=== PATIENT | male | born 1950 | race Hispanic/Latino ===

== ENCOUNTER 2020-07-03 09:57 | Inpatient (IN) | payer MEDICARE, SELFPAY ==
[2020-07-03] MEDS ORDERED: Dexamethasone 10 MG/ML VIAL ONE (10:48)
[2020-07-03] MEDS ORDERED: Albuterol Sulfate 1.25 MG/3 ML NEB ONE (10:49)
[2020-07-03 11:51] LABS: #Basophils 0.1 thou/uL (0.0-0.2); #Lymphocytes 1.5 thou/uL (1.20-3.40); #Monocytes 1.1 thou/uL (0.11-0.59); #Neutrophils 8.7 thou/uL (1.40-6.50); %Basophils 0.6 % (0.0-1.0); %Lymphocytes 12.8 % (21.0-51.0); %Monocytes 9.5 % (0.0-10.0); Hemoglobin 13.2 g/dL (14.0-18.0); Mean Corpuscular HGB CONC 32.8 g/dL (32.0-36.0); Mean Corpuscular Hemoglobin 28.3 pg (27.0-31.0); Mean Corpuscular Volume 86.4 fL (78.0-98.0); Mean Platelet Volume 8.6 fL (7.4-10.4); Platelet Count 353 thou/uL (130-400); RBC Distribution Width 12.2 % (11.5-14.5); Red Blood Cell (RBC) Count 4.65 mill/uL (4.70-6.10); White Blood Cell (WBC) Count 11.3 thou/uL (4.8-10.8)
[2020-07-03 12:06] LABS: ALT (SGPT) 13 U/L (8-55); AST (SGOT) 18 U/L (5-34); Alkaline Phosphatase 57 U/L (40-110); Anion Gap 19 mmol/L (10-20); BUN (Urea Nitrogen) 15 mg/dL (8.4-25.7); Bilirubin, Total 0.5 mg/dL (0.2-1.2); Calc. Creatinine Clearance 0 mL/min (70-130); Calcium 8.3 mg/dL (7.8-10.44); Carbon Dioxide 18 mmol/L (23-31); Chloride 105 mmol/L (98-107); Globulin 3.4 g/dL (2.4-3.5); Glucose 274 mg/dL (80-115); Potassium 3.4 mmol/L (3.5-5.1); Protein, Total 6.4 g/dL (5.8-8.1); Sodium 139 mmol/L (136-145)
[2020-07-03] MEDS ORDERED: Triple Antibiotic Oint 1 GM Packet ONE (16:19)
[2020-07-03] MEDS ORDERED: Bacitracin 1 PK ONE (16:19)
[2020-07-03] MEDS ORDERED: Albuterol Sulfate 2.5 mg/3 ml Neb NEB PRN (19:08)
[2020-07-03] MEDS ORDERED: Ondansetron PF 4 MG/2 ML Vial IVP PRN (19:15)
[2020-07-03] MEDS ORDERED: Ondansetron ODT 4 MG TAB SL PRN (19:15)
[2020-07-03] MEDS: Sodium Chloride 0.9% 1,000 ML IV SCH (19:15)
[2020-07-03 19:35] VITALS: BMI 27.1
[2020-07-03] MEDS ORDERED: Loperamide HCl 2 MG CAP PO PRN ×2 (20:32)
[2020-07-03] MEDS ORDERED: Senokot S 8.6-50 MG TAB PO PRN (20:32)
[2020-07-03] MEDS ORDERED: Dextrose 5% in Water 1,000 ML IV PRN (20:37)
[2020-07-03] MEDS ORDERED: Dextrose 50% Abboject 50 ML SYRINGE SLOW IVP PRN (20:37)
[2020-07-03] MEDS ORDERED: Enoxaparin Sodium 40 MG/0.4 ML SYRINGE SC SCH (21:00)
[2020-07-03] MEDS: HumuLIN 70/30 (300 UNITS/3 ML VIAL) SC SCH (21:08)
[2020-07-03] MEDS: Gabapentin 300 MG CAP PO SCH (21:09)
[2020-07-03] MEDS: Atorvastatin Calcium 10 MG TAB PO SCH (21:09)
[2020-07-03] MEDS: HumaLOG 300 UNITS/3 ML VIAL SC PRN (21:09)
[2020-07-03] MEDS: Guaifenesin DM 100-10/5 ML UDCUP PO PRN (22:08)
[2020-07-04] MEDS: Sodium Chloride 0.9% 1,000 ML IV SCH ×3 (01:06→17:17)
[2020-07-04 04:41] LABS: #Lymphocytes 0.6 thou/uL (1.20-3.40); #Monocytes 0.5 thou/uL (0.11-0.59); #Neutrophils 3.6 thou/uL (1.40-6.50); %Basophils 0.6 % (0.0-1.0); %Eosinophils 0.1 % (0.0-10.0); %Lymphocytes 13.1 % (21.0-51.0); %Neutrophils 76.2 % (42.0-75.0); Hemoglobin 12.6 g/dL (14.0-18.0); Mean Corpuscular HGB CONC 32.2 g/dL (32.0-36.0); Mean Corpuscular Hemoglobin 27.8 pg (27.0-31.0); Mean Corpuscular Volume 86.4 fL (78.0-98.0); Mean Platelet Volume 8.5 fL (7.4-10.4); Platelet Count 364 thou/uL (130-400); RBC Distribution Width 12.3 % (11.5-14.5); Red Blood Cell (RBC) Count 4.54 mill/uL (4.70-6.10); White Blood Cell (WBC) Count 4.7 thou/uL (4.8-10.8)
[2020-07-04 05:18] LABS: ALT (SGPT) 13 U/L (8-55); AST (SGOT) 18 U/L (5-34); Albumin 2.9 g/dL (3.4-4.8); Alkaline Phosphatase 66 U/L (40-110); Anion Gap 17 mmol/L (10-20); BUN (Urea Nitrogen) 13 mg/dL (8.4-25.7); Bilirubin, Total 0.3 mg/dL (0.2-1.2); Calc. Creatinine Clearance 121 mL/min (70-130); Calcium 8.6 mg/dL (7.8-10.44); Carbon Dioxide 18 mmol/L (23-31); Chloride 108 mmol/L (98-107); Globulin 3.4 g/dL (2.4-3.5); Glucose 311 mg/dL (80-115); Protein, Total 6.3 g/dL (5.8-8.1); Sodium 139 mmol/L (136-145)
[2020-07-04] MEDS ORDERED: Albuterol 200 PUFF (6.7GM INHALER) INH PRN (07:45)
[2020-07-04] MEDS ORDERED: Dexamethasone 4 MG TAB ONE ×3 (08:10)
[2020-07-04] MEDS ORDERED: Dexamethasone 10 MG/ML VIAL ONE (08:20)
[2020-07-04] MEDS ORDERED: FLU VACC QS2020-21(65YR UP)/PF 240 MCG/0.7 ML SYRINGE IM ONE (09:00)
[2020-07-04] MEDS ORDERED: Dexamethasone 4 MG TAB PO SCH (09:00)
[2020-07-04] MEDS: DEXAMETHASONE IVPB SCH (10:05)
[2020-07-04] MEDS: SODIUM CHLORIDE 0.9% IVPB SCH (10:05)
[2020-07-04] MEDS: metFORMIN 500 MG TAB PO SCH ×2 (10:06→17:15)
[2020-07-04] MEDS: Gabapentin 300 MG CAP PO SCH ×3 (10:06→21:00)
[2020-07-04] MEDS: HumuLIN 70/30 (300 UNITS/3 ML VIAL) SC SCH ×2 (10:07→21:00)
[2020-07-04] MEDS: Escitalopram Oxalate 20 mg Tablet PO SCH (10:07)
[2020-07-04] MEDS: HumaLOG 300 UNITS/3 ML VIAL SC PRN ×4 (10:09→21:00)
[2020-07-04] MEDS: Albuterol 200 PUFF (6.7GM INHALER) INH SCH ×2 (13:25→18:17)
[2020-07-04] MEDS ORDERED: Iopamidol 370 76% 100 ML VIAL ONE (16:43)
[2020-07-04] MEDS: Acetaminophen 325 MG TAB PO PRN (17:15)
[2020-07-04] MEDS: Enoxaparin Sodium 40 MG/0.4 ML SYRINGE SC SCH (21:00)
[2020-07-04] MEDS: Atorvastatin Calcium 10 MG TAB PO SCH (21:00)
[2020-07-05] MEDS: Albuterol 200 PUFF (6.7GM INHALER) INH SCH ×4 (01:14→18:02)
[2020-07-05] MEDS: Sodium Chloride 0.9% 1,000 ML IV SCH (04:58)
[2020-07-05] MEDS ORDERED: Dexamethasone 4 mg/ml Vial ONE (07:58)
[2020-07-05] MEDS: metFORMIN 500 MG TAB PO SCH ×2 (09:26→16:01)
[2020-07-05] MEDS: SODIUM CHLORIDE 0.9% IVPB SCH (09:26)
[2020-07-05] MEDS: DEXAMETHASONE IVPB SCH (09:26)
[2020-07-05] MEDS: Gabapentin 300 MG CAP PO SCH ×3 (09:27→21:31)
[2020-07-05] MEDS: Escitalopram Oxalate 20 mg Tablet PO SCH (09:28)
[2020-07-05] MEDS: HumaLOG 300 UNITS/3 ML VIAL SC PRN ×3 (09:28→21:34)
[2020-07-05] MEDS: HumuLIN 70/30 (300 UNITS/3 ML VIAL) SC SCH ×2 (09:29→21:33)
[2020-07-05] MEDS: Acetaminophen 325 MG TAB PO PRN (12:45)
[2020-07-05] MEDS: Atorvastatin Calcium 10 MG TAB PO SCH (21:31)
[2020-07-05] MEDS: Guaifenesin DM 100-10/5 ML UDCUP PO PRN (21:32)
[2020-07-06] MEDS: Enoxaparin Sodium 40 MG/0.4 ML SYRINGE SC SCH ×2 (01:17→22:24)
[2020-07-06] MEDS: Acetaminophen 325 MG TAB PO PRN ×2 (01:18→22:28)
[2020-07-06] MEDS: Albuterol 200 PUFF (6.7GM INHALER) INH SCH ×5 (01:20→22:28)
[2020-07-06 05:05] LABS: #Basophils 0.1 thou/uL (0.0-0.2); #Lymphocytes 1.2 thou/uL (1.20-3.40); #Monocytes 0.9 thou/uL (0.11-0.59); %Basophils 1.2 % (0.0-1.0); %Lymphocytes 13.1 % (21.0-51.0); %Monocytes 9.4 % (0.0-10.0); %Neutrophils 76.3 % (42.0-75.0); Hemoglobin 12.6 g/dL (14.0-18.0); Mean Corpuscular HGB CONC 32.4 g/dL (32.0-36.0); Mean Corpuscular Hemoglobin 27.9 pg (27.0-31.0); Mean Corpuscular Volume 86.2 fL (78.0-98.0); Platelet Count 400 thou/uL (130-400); RBC Distribution Width 12.3 % (11.5-14.5); Red Blood Cell (RBC) Count 4.51 mill/uL (4.70-6.10); White Blood Cell (WBC) Count 9.2 thou/uL (4.8-10.8)
[2020-07-06 05:20] LABS: ALT (SGPT) 12 U/L (8-55); AST (SGOT) 14 U/L (5-34); Albumin 2.7 g/dL (3.4-4.8); Alkaline Phosphatase 51 U/L (40-110); Anion Gap 13 mmol/L (10-20); BUN (Urea Nitrogen) 11 mg/dL (8.4-25.7); Bilirubin, Total 0.3 mg/dL (0.2-1.2); Calc. Creatinine Clearance 152 mL/min (70-130); Calcium 8.1 mg/dL (7.8-10.44); Carbon Dioxide 23 mmol/L (23-31); Chloride 111 mmol/L (98-107); Globulin 2.7 g/dL (2.4-3.5); Glucose 94 mg/dL (80-115); Protein, Total 5.4 g/dL (5.8-8.1); Sodium 144 mmol/L (136-145)
[2020-07-06] MEDS ORDERED: Dexamethasone 4 mg/ml Vial ONE (07:52)
[2020-07-06] MEDS: metFORMIN 500 MG TAB PO SCH ×2 (09:14→16:16)
[2020-07-06] MEDS: Gabapentin 300 MG CAP PO SCH ×3 (09:14→22:25)
[2020-07-06] MEDS: DEXAMETHASONE IVPB SCH (09:15)
[2020-07-06] MEDS: SODIUM CHLORIDE 0.9% IVPB SCH (09:15)
[2020-07-06] MEDS: Escitalopram Oxalate 20 mg Tablet PO SCH (09:15)
[2020-07-06] MEDS: HumuLIN 70/30 (300 UNITS/3 ML VIAL) SC SCH ×2 (09:16→22:26)
[2020-07-06] MEDS: HumaLOG 300 UNITS/3 ML VIAL SC PRN (18:08)
[2020-07-06] MEDS: Guaifenesin DM 100-10/5 ML UDCUP PO PRN (22:25)
[2020-07-06] MEDS: Atorvastatin Calcium 10 MG TAB PO SCH (22:25)
[2020-07-07] MEDS: Albuterol 200 PUFF (6.7GM INHALER) INH SCH ×4 (06:49→20:51)
[2020-07-07] MEDS: Dexamethasone 4 mg/ml Vial SLOW IVP SCH (09:02)
[2020-07-07] MEDS: HumuLIN 70/30 (300 UNITS/3 ML VIAL) SC SCH ×2 (09:03→20:49)
[2020-07-07] MEDS: Gabapentin 300 MG CAP PO SCH ×3 (09:03→20:50)
[2020-07-07] MEDS: Escitalopram Oxalate 20 mg Tablet PO SCH (09:04)
[2020-07-07] MEDS: metFORMIN 500 MG TAB PO SCH ×2 (09:04→16:30)
[2020-07-07] MEDS: HumaLOG 300 UNITS/3 ML VIAL SC PRN (18:28)
[2020-07-07] MEDS: Enoxaparin Sodium 40 MG/0.4 ML SYRINGE SC SCH (20:51)
[2020-07-07] MEDS: Atorvastatin Calcium 10 MG TAB PO SCH (20:51)
[2020-07-08] MEDS: Albuterol 200 PUFF (6.7GM INHALER) INH SCH ×4 (02:00→20:00)
[2020-07-08] MEDS: Escitalopram Oxalate 20 mg Tablet PO SCH (07:54)
[2020-07-08] MEDS: metFORMIN 500 MG TAB PO SCH ×2 (07:54→15:50)
[2020-07-08] MEDS: HumuLIN 70/30 (300 UNITS/3 ML VIAL) SC SCH ×3 (07:55→20:37)
[2020-07-08] MEDS: Gabapentin 300 MG CAP PO SCH ×3 (07:55→20:35)
[2020-07-08] MEDS: Dexamethasone 4 mg/ml Vial SLOW IVP SCH (08:05)
[2020-07-08 11:21] LABS: #Basophils 0.1 thou/uL (0.0-0.2); #Lymphocytes 1.1 thou/uL (1.20-3.40); #Monocytes 0.7 thou/uL (0.11-0.59); #Neutrophils 12.6 thou/uL (1.40-6.50); %Eosinophils 0.1 % (0.0-10.0); %Lymphocytes 7.2 % (21.0-51.0); %Monocytes 4.7 % (0.0-10.0); %Neutrophils 86.9 % (42.0-75.0); Hemoglobin 13.9 g/dL (14.0-18.0); Mean Corpuscular HGB CONC 33.2 g/dL (32.0-36.0); Mean Corpuscular Hemoglobin 28.8 pg (27.0-31.0); Mean Corpuscular Volume 86.8 fL (78.0-98.0); Mean Platelet Volume 8.2 fL (7.4-10.4); Platelet Count 409 thou/uL (130-400); RBC Distribution Width 12.7 % (11.5-14.5); Red Blood Cell (RBC) Count 4.81 mill/uL (4.70-6.10); White Blood Cell (WBC) Count 14.5 thou/uL (4.8-10.8)
[2020-07-08 11:52] LABS: ALT (SGPT) 28 U/L (8-55); AST (SGOT) 24 U/L (5-34); Alkaline Phosphatase 54 U/L (40-110); Anion Gap 15 mmol/L (10-20); BUN (Urea Nitrogen) 16 mg/dL (8.4-25.7); Bilirubin, Total 0.4 mg/dL (0.2-1.2); CRP (Inflammatory) Less than 0.50 mg/dL (= or < 0.5); Calc. Creatinine Clearance 124 mL/min (70-130); Calcium 8.5 mg/dL (7.8-10.44); Carbon Dioxide 29 mmol/L (23-31); Chloride 101 mmol/L (98-107); Globulin 2.3 g/dL (2.4-3.5); Glucose 194 mg/dL (80-115); Protein, Total 5.3 g/dL (5.8-8.1); Sodium 141 mmol/L (136-145)
[2020-07-08] MEDS: HumaLOG 300 UNITS/3 ML VIAL SC PRN ×2 (12:32→16:24)
[2020-07-08] MEDS: Enoxaparin Sodium 40 MG/0.4 ML SYRINGE SC SCH (20:35)
[2020-07-08] MEDS: Atorvastatin Calcium 10 MG TAB PO SCH (20:36)
[2020-07-08] MEDS: Acetaminophen 325 MG TAB PO PRN (20:36)
[2020-07-09] MEDS: Albuterol 200 PUFF (6.7GM INHALER) INH SCH ×4 (02:00→20:40)
[2020-07-09 05:12] LABS: Hemoglobin 13.1 g/dL (14.0-18.0); Platelet Count 356 thou/uL (130-400)
[2020-07-09 06:05] LABS: Calc. Creatinine Clearance 154 mL/min (70-130)
[2020-07-09] MEDS: metFORMIN 500 MG TAB PO SCH ×2 (08:25→18:04)
[2020-07-09] MEDS: Gabapentin 300 MG CAP PO SCH ×3 (08:25→20:38)
[2020-07-09] MEDS: Escitalopram Oxalate 20 mg Tablet PO SCH (08:26)
[2020-07-09] MEDS: HumuLIN 70/30 (300 UNITS/3 ML VIAL) SC SCH (08:45)
[2020-07-09] MEDS ORDERED: Sodium Chloride 0.9% 500 ML IVPB SCH (14:00)
[2020-07-09 14:27] LABS: #Basophils 0.1 thou/uL (0.0-0.2); #Lymphocytes 2.3 thou/uL (1.20-3.40); #Monocytes 0.9 thou/uL (0.11-0.59); #Neutrophils 8.3 thou/uL (1.40-6.50); %Basophils 0.8 % (0.0-1.0); %Eosinophils 0.4 % (0.0-10.0); %Lymphocytes 19.8 % (21.0-51.0); %Monocytes 7.6 % (0.0-10.0); %Neutrophils 71.4 % (42.0-75.0); Hemoglobin 12.8 g/dL (14.0-18.0); Mean Corpuscular HGB CONC 33.1 g/dL (32.0-36.0); Mean Corpuscular Hemoglobin 28.8 pg (27.0-31.0); Mean Corpuscular Volume 86.8 fL (78.0-98.0); Mean Platelet Volume 8.7 fL (7.4-10.4); Platelet Count 369 thou/uL (130-400); RBC Distribution Width 12.5 % (11.5-14.5); Red Blood Cell (RBC) Count 4.46 mill/uL (4.70-6.10); White Blood Cell (WBC) Count 11.7 thou/uL (4.8-10.8)
[2020-07-09 14:43] LABS: ALT (SGPT) 27 U/L (8-55); AST (SGOT) 26 U/L (5-34); Albumin 2.7 g/dL (3.4-4.8); Alkaline Phosphatase 45 U/L (40-110); Anion Gap 15 mmol/L (10-20); BUN (Urea Nitrogen) 21 mg/dL (8.4-25.7); Bilirubin, Total 0.3 mg/dL (0.2-1.2); Calc. Creatinine Clearance 134 mL/min (70-130); Calcium 8.3 mg/dL (7.8-10.44); Carbon Dioxide 28 mmol/L (23-31); Chloride 104 mmol/L (98-107); Globulin 2.3 g/dL (2.4-3.5); Glucose 86 mg/dL (80-115); Potassium 3.5 mmol/L (3.5-5.1); Sodium 143 mmol/L (136-145)
[2020-07-09] MEDS ORDERED: Sodium Chloride 0.9% 500 ML IV SCH (18:15)
[2020-07-09] MEDS: Enoxaparin Sodium 40 MG/0.4 ML SYRINGE SC SCH (20:38)
[2020-07-09] MEDS: Acetaminophen 325 MG TAB PO PRN (20:38)
[2020-07-09] MEDS: Atorvastatin Calcium 10 MG TAB PO SCH (20:40)
[2020-07-10] MEDS: Albuterol 200 PUFF (6.7GM INHALER) INH SCH ×4 (01:13→20:21)
[2020-07-10] MEDS: HumuLIN 70/30 (300 UNITS/3 ML VIAL) SC SCH (08:44)
[2020-07-10] MEDS: Escitalopram Oxalate 20 mg Tablet PO SCH (08:45)
[2020-07-10] MEDS: Gabapentin 300 MG CAP PO SCH ×3 (08:46→20:20)
[2020-07-10] MEDS: metFORMIN 500 MG TAB PO SCH ×2 (08:46→17:10)
[2020-07-10] MEDS ORDERED: HumuLIN 70/30 (300 UNITS/3 ML VIAL) SC SCH ×2 (17:00→21:00)
[2020-07-10] MEDS: Enoxaparin Sodium 40 MG/0.4 ML SYRINGE SC SCH (20:19)
[2020-07-10] MEDS: Acetaminophen 325 MG TAB PO PRN (20:20)
[2020-07-10] MEDS: Atorvastatin Calcium 10 MG TAB PO SCH (20:20)
[2020-07-10] MEDS ORDERED: HumaLOG 300 UNITS/3 ML VIAL SC PRN (20:52)
[2020-07-11] MEDS: Albuterol 200 PUFF (6.7GM INHALER) INH SCH ×3 (03:00→15:39)
[2020-07-11 05:35] VITALS: BP 103/54; TEMP 97.1
[2020-07-11] MEDS: Escitalopram Oxalate 20 mg Tablet PO SCH (08:30)
[2020-07-11] MEDS: HumuLIN 70/30 (300 UNITS/3 ML VIAL) SC SCH (08:30)
[2020-07-11] MEDS: metFORMIN 500 MG TAB PO SCH (08:30)
[2020-07-11] MEDS ORDERED: HumuLIN 70/30 (300 UNITS/3 ML VIAL) SC SCH ×2 (09:00→17:00)
[2020-07-11] MEDS: Gabapentin 300 MG CAP PO SCH (10:46)
== END 2020-07-11 15:50 | disposition swing bed (61) | DRG 177 ==
LOC: BURERS 09:57 → BURMED 15:29
PROVIDERS: ADMIT Family Medicine; ATTEND Family Medicine
PROC: 8E0ZXY6 Isolation (ICD-10-PCS; principal; 2020-07-03)
DX: U07.1 COVID-19 (principal); J12.82 Pneumonia due to coronavirus disease 2019; I10 Essential (primary) hypertension; E78.00 Pure hypercholesterolemia, unspecified; R53.81 Other malaise; D64.9 Anemia, unspecified; I95.89 Other hypotension; E86.1 Hypovolemia; Z79.4 Long term (current) use of insulin; Z79.899 Other long term (current) drug therapy; Z83.3 Family history of diabetes mellitus; Z82.49 Family history of ischemic heart disease and other diseases of the circulatory system; E11.42 Type 2 diabetes mellitus with diabetic polyneuropathy
CPT/HCPCS: 36415; 36416; 71045; 71275; 80053; 82565; 82728; 83605; 83880; 84484; 85014; 85018; 85025; 85049; 85379; 86140; 87040; 94640; 94760; 96374; J1100; J1650; J1815; J3490; J7030; J7050; J7620; J8540; Q9967

== ENCOUNTER 2020-07-11 15:50 | Inpatient (IN) | payer MEDICARE ==
[2020-07-11] MEDS ORDERED: Senokot S 8.6-50 MG TAB PO PRN ×2 (16:12→16:38)
[2020-07-11] MEDS ORDERED: Acetaminophen 325 MG TAB PO PRN (16:12)
[2020-07-11] MEDS ORDERED: Ondansetron ODT 4 MG TAB PO PRN (16:38)
[2020-07-11] MEDS ORDERED: Loperamide HCl 2 MG CAP PO PRN (16:38)
[2020-07-11] MEDS ORDERED: Guaifenesin DM 100-10/5 ML UDCUP PO PRN (16:38)
[2020-07-11] MEDS ORDERED: Albuterol 200 PUFF (6.7GM INHALER) INH PRN (17:02)
[2020-07-11] MEDS: Acetaminophen 325 MG TAB PO SCH ×2 (18:42→21:00)
[2020-07-11] MEDS: HumuLIN 70/30 (300 UNITS/3 ML VIAL) SC SCH (18:43)
[2020-07-11] MEDS: metFORMIN 500 MG TAB PO SCH (18:43)
[2020-07-11] MEDS: Atorvastatin Calcium 10 MG TAB PO SCH (20:24)
[2020-07-11] MEDS: Gabapentin 300 MG CAP PO SCH (20:24)
[2020-07-12] MEDS: Acetaminophen 325 MG TAB PO SCH ×2 (01:00→05:00)
[2020-07-12] MEDS: metFORMIN 500 MG TAB PO SCH ×2 (08:18→17:29)
[2020-07-12] MEDS: Gabapentin 300 MG CAP PO SCH ×3 (08:18→20:26)
[2020-07-12] MEDS: Enoxaparin Sodium 40 MG/0.4 ML SYRINGE SC SCH (08:19)
[2020-07-12] MEDS: Escitalopram Oxalate 20 mg Tablet PO SCH (08:19)
[2020-07-12] MEDS: HumuLIN 70/30 (300 UNITS/3 ML VIAL) SC SCH ×2 (08:58→17:30)
[2020-07-12] MEDS ORDERED: Enoxaparin Sodium 40 MG/0.4 ML SYRINGE SC SCH (09:00)
[2020-07-12 11:46] LABS: Hemoglobin A1c 11.8 % (4.0-6.0)
[2020-07-12] MEDS: Atorvastatin Calcium 10 MG TAB PO SCH (20:26)
[2020-07-13 05:12] LABS: #Basophils 0.1 thou/uL (0.0-0.2); #Eosinphils 0.1 thou/uL (0.0-0.7); #Lymphocytes 1.7 thou/uL (1.20-3.40); #Monocytes 0.8 thou/uL (0.11-0.59); #Neutrophils 5.9 thou/uL (1.40-6.50); %Basophils 0.9 % (0.0-1.0); %Lymphocytes 19.8 % (21.0-51.0); %Monocytes 9.8 % (0.0-10.0); %Neutrophils 68.5 % (42.0-75.0); Hemoglobin 12.1 g/dL (14.0-18.0); Mean Corpuscular HGB CONC 33.8 g/dL (32.0-36.0); Mean Corpuscular Hemoglobin 29.2 pg (27.0-31.0); Mean Corpuscular Volume 86.4 fL (78.0-98.0); Mean Platelet Volume 10.3 fL (7.4-10.4); Platelet Count 227 thou/uL (130-400); RBC Distribution Width 12.9 % (11.5-14.5); Red Blood Cell (RBC) Count 4.15 mill/uL (4.70-6.10); White Blood Cell (WBC) Count 8.6 thou/uL (4.8-10.8)
[2020-07-13 05:26] LABS: ALT (SGPT) 23 U/L (8-55); AST (SGOT) 18 U/L (5-34); Albumin 2.8 g/dL (3.4-4.8); Alkaline Phosphatase 52 U/L (40-110); Anion Gap 11 mmol/L (10-20); BUN (Urea Nitrogen) 9 mg/dL (8.4-25.7); Bilirubin, Total 0.3 mg/dL (0.2-1.2); Calc. Creatinine Clearance 159 mL/min (70-130); Calcium 8.7 mg/dL (7.8-10.44); Carbon Dioxide 31 mmol/L (23-31); Chloride 105 mmol/L (98-107); Globulin 2.3 g/dL (2.4-3.5); Glucose 102 mg/dL (80-115); Protein, Total 5.1 g/dL (5.8-8.1); Sodium 143 mmol/L (136-145)
[2020-07-13] MEDS: metFORMIN 500 MG TAB PO SCH ×2 (07:51→17:34)
[2020-07-13] MEDS: Gabapentin 300 MG CAP PO SCH ×3 (07:52→20:53)
[2020-07-13] MEDS: Escitalopram Oxalate 20 mg Tablet PO SCH (07:52)
[2020-07-13] MEDS: Enoxaparin Sodium 40 MG/0.4 ML SYRINGE SC SCH (07:52)
[2020-07-13] MEDS: HumuLIN 70/30 (300 UNITS/3 ML VIAL) SC SCH ×2 (07:53→17:35)
[2020-07-13] MEDS: Atorvastatin Calcium 10 MG TAB PO SCH (20:53)
[2020-07-14] MEDS: HumuLIN 70/30 (300 UNITS/3 ML VIAL) SC SCH ×2 (08:13→18:00)
[2020-07-14] MEDS: Escitalopram Oxalate 20 mg Tablet PO SCH (08:14)
[2020-07-14] MEDS: metFORMIN 500 MG TAB PO SCH ×2 (08:14→18:00)
[2020-07-14] MEDS: Enoxaparin Sodium 40 MG/0.4 ML SYRINGE SC SCH (08:14)
[2020-07-14] MEDS: Gabapentin 300 MG CAP PO SCH ×3 (08:16→20:19)
[2020-07-14 10:20] VITALS: BMI 29.9
[2020-07-14] MEDS: Atorvastatin Calcium 10 MG TAB PO SCH (20:18)
[2020-07-15 06:49] VITALS: BP 124/64; TEMP 97.7
[2020-07-15] MEDS: Enoxaparin Sodium 40 MG/0.4 ML SYRINGE SC SCH (08:07)
[2020-07-15] MEDS: HumuLIN 70/30 (300 UNITS/3 ML VIAL) SC SCH (08:08)
[2020-07-15] MEDS: Gabapentin 300 MG CAP PO SCH (08:09)
[2020-07-15] MEDS: metFORMIN 500 MG TAB PO SCH (08:09)
[2020-07-15] MEDS: Escitalopram Oxalate 20 mg Tablet PO SCH (08:09)
== END 2020-07-15 16:00 | disposition home or self-care (01) | DRG 177 ==
LOC: BURMED 15:50
PROVIDERS: ADMIT Family Medicine; ATTEND Family Medicine
DX: U07.1 COVID-19 (principal); J12.82 Pneumonia due to coronavirus disease 2019; E11.42 Type 2 diabetes mellitus with diabetic polyneuropathy; I10 Essential (primary) hypertension; E11.649 Type 2 diabetes mellitus with hypoglycemia without coma; Z79.4 Long term (current) use of insulin
CPT/HCPCS: 36415; 36416; 80053; 83036; 85025; J1650; J1815